=== PATIENT | male | born 1995 | race Caucasian/White ===

== ENCOUNTER 2016-07-23 19:46 | Emergency (ER) | payer OTHER ==
[~2016-07-23] VITALS: Ht 157.5 cm; Wt 61.2 kg
[2016-07-23 19:50] VITALS: BP 122/80
[2016-07-23] MEDS ORDERED: IBUPROFEN 600 MG TABLET. PO ONE (20:15)
[2016-07-23] MEDS ORDERED: ACETAMINOPHEN 325 MG TABLET PO ONE (20:15)
[2016-07-23] MEDS ORDERED: NAPR500T PO (20:25)
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
== END 2016-07-23 20:27 | disposition home or self-care (01) ==
LOC: ER 19:46
DX: S76.011A Strain of muscle, fascia and tendon of right hip, initial encounter (principal); S80.811A Abrasion, right lower leg, initial encounter; V89.2XXA Person injured in unspecified motor-vehicle accident, traffic, initial encounter; Y93.89 Activity, other specified; Y99.8 Other external cause status; Y92.481 Parking lot as the place of occurrence of the external cause
CPT/HCPCS: 99283

== ENCOUNTER 2021-07-12 14:04 | Emergency (ER) | payer OTHER ==
[~2021-07-12] VITALS: Ht 157.5 cm; Wt 60.9 kg
[~2021-07-12 14:04] MED LIST: NAPR-683 PO
[2021-07-12] MEDS ORDERED: diphenhydrAMINE 50 MG/ML VIAL IVP ONE (14:30)
[2021-07-12] MEDS ORDERED: PROCHLORPERAZINE 10 MG/2 ML VIAL. IV ONE (14:30)
[2021-07-12] MEDS ORDERED: KETOROLAC 30 MG/ML VIAL. IVP ONE (14:30)
[2021-07-12] MEDS ORDERED: IV NORMAL SALINE 1,000ML 1,000 ML IV ONE (14:30)
--- NOTE | 2021-07-12 14:39 | PHYS DOC ---
Past History Past Medical History: No Pertinent History Past Surgical History: No Surgical History Alcohol Use: Occasionally Drug Use: None General Adult EDM: Chief Complaint: DIZZY/LIGHT HEADED HPI: HPI: Patient is a 26-year-old male who presents to the emergency department multiple complaints. Patient reports that he was working outside today putting windows in the house newly had approximately 34 ounces of fluid. He reports that when he was outside working he started to feel lightheaded and nauseous. He reports he started experiencing blurred right peripheral vision and frontal headache with tingling in his hands. Patient reports that the blurred vision in his right eye is intermittent. He denies any chest pain, shortness of breath, vomiting, fevers, photophobia. He has no medical history. Review of Systems: Review of Systems: Constitutional: see HPI Eyes: see HPI HENT: see HPI Respiratory: see HPI Cardiovascular: see HPI GI: see HPI Neurologic: see HPI Current Medications: Current Meds: Current Medications Medications (Trade) Dose Ordered Sig/Can Start Time Stop Time Status Last Admin Dose Admin Diphenhydramine HCl (Benadryl) 25 mg 1X ONCE 07/12/21 14:30 07/12/21 14:33 DC Ketorolac Tromethamine (Toradol 30mg Vial) 30 mg 1X ONCE 07/12/21 14:30 07/12/21 14:33 DC Prochlorperazine Edisylate (Compazine) 10 mg 1X ONCE 07/12/21 14:30 07/12/21 14:33 DC Sodium Chloride 1,000 ml @ 1,000 mls/hr 1X ONCE 07/12/21 14:30 07/12/21 15:29 Allergies: Allergies: Allergies Coded Allergies Type Severity Reaction Last Updated Verified No Known Drug Allergies 07/23/16 No Physical Exam: PE: Constitutional: Well developed, well nourished, no acute distress, non-toxic appearance. [] HENT: Normocephalic, atraumatic, bilateral external ears normal, oropharynx moist, no oral exudates, nose normal. [] Eyes: PERRL,no nystagmus, 4mm bilaterally, peripheral vision intact, EOMI, conjunctiva normal, no discharge. [] Neck: Normal range of motion, no tenderness, supple, no stridor. [] Cardiovascular:Heart rate regular rhythm, no murmur [] Lungs & Thorax: Bilateral breath sounds clear to auscultation [] Abdomen: Bowel sounds normal, soft, no tenderness, no masses, no pulsatile masses. [] Skin: Warm, dry, no erythema, no rash. [] Back: No tenderness, normal ROM Extremities: No tenderness, no cyanosis, no clubbing, ROM intact, no edema. [] Neurologic: Alert and oriented X 3, normal motor function, normal sensory function, no focal deficits noted, no limb ataxia, no pronator drift, no slurred speech. [] Psychologic: Affect normal, judgement normal, mood normal. [] Current Patient Data: Labs: Laboratory Tests Test 07/12/21 14:21 07/12/21 14:39 Sodium Level 140 mmol/L Potassium Level 3.6 mmol/L Chloride Level 103 mmol/L Carbon Dioxide Level 27 mmol/L Anion Gap 10 Blood Urea Nitrogen 13 mg/dL Creatinine 0.8 mg/dL Estimated GFR (Cockcroft-Gault) 117.8 BUN/Creatinine Ratio 16 Glucose Level 89 mg/dL Calcium Level 9.2 mg/dL Total Bilirubin 0.7 mg/dL Aspartate Amino Transf (AST/SGOT) 46 U/L Alanine Aminotransferase (ALT/SGPT) 127 U/L Alkaline Phosphatase 76 U/L Total Protein 7.7 g/dL Albumin 4.2 g/dL Albumin/Globulin Ratio 1.2 White Blood Count 10.3 x10^3/uL Red Blood Count 4.97 x10^6/uL Hemoglobin 15.7 g/dL Hematocrit 45.6 % Mean Corpuscular Volume 92 fL Mean Corpuscular Hemoglobin 32 pg Mean Corpuscular Hemoglobin Concent 35 g/dL Red Cell Distribution Width 13.1 % Platelet Count 228 x10^3/uL Neutrophils (%) (Auto) 67 % Lymphocytes (%) (Auto) 22 % Monocytes (%) (Auto) 9 % Eosinophils (%) (Auto) 2 % Basophils (%) (Auto) 1 % Neutrophils # (Auto) 6.9 x10^3uL Lymphocytes # (Auto) 2.3 x10^3/uL Monocytes # (Auto) 0.9 x10^3/uL Eosinophils # (Auto) 0.2 x10^3/uL Basophils # (Auto) 0.1 x10^3/uL Current Medications Medications (Trade) Dose Ordered Sig/Can Route PRN Reason Start Time Stop Time Status Last Admin Dose Admin Sodium Chloride 1,000 ml @ 1,000 mls/hr 1X ONCE IV 07/12/21 14:30 07/12/21 15:29 DC 07/12/21 14:30 Ketorolac Tromethamine (Toradol 30mg Vial) 30 mg 1X ONCE IVP 07/12/21 14:30 07/12/21 14:33 DC 07/12/21 14:30 Diphenhydramine HCl (Benadryl) 25 mg 1X ONCE IVP 07/12/21 14:30 07/12/21 14:33 DC 07/12/21 14:30 Prochlorperazine Edisylate (Compazine) 10 mg 1X ONCE IV 07/12/21 14:30 07/12/21 14:33 DC 07/12/21 14:30 Vital Signs: Vital Signs Date Time Temp Pulse Resp B/P (MAP) Pulse Ox O2 Delivery O2 Flow Rate FiO2 07/12/21 14:17 99.0 89 16 123/60 (81) 100 Room Air EKG: EKG: [] Radiology/Procedures: Radiology/Procedures: \PROCEDURE: CT HEAD WO CONTRAST CT head without contrast PQRS statement: CT scans at this facility use dose reduction including either automated exposure control, iterative reconstructions, and /or weight based radiation dosing via mA and kV modification when appropriate to reduce radiation dose to as low as reasonably achievable. HISTORY: Headache. Dizziness. FINDINGS: Cerebellar tonsillar ectopia extending slightly below the foramen magnum extending outside [id number], this is likely incidental tonsil ectopia, a Chiari I malformation is possible although is less likely as there does not appear to be significant crowding of the tonsils with the brainstem evident, although this could be definitively assessed with MR imaging. Basilar cisterns are patent. No intracranial hemorrhage, mass, hydrocephalus, extra- axial fluid collections or infarction. Orbits, mastoids and bones are unremarkable. IMPRESSION: No acute abnormality. 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 See above. Electronically signed by: Simón Mahan MD (07/12/2021 2:42 PM) [facility] [place]IGNED BY: SIMÓN MAHAN MD DATE: 07/12/21 [id number] CC: [facility] [employer] C[employer] MANAGER RN; PCP,NO ~ Heart Score: C/O Chest Pain: No Risk Factors: Risk Factors: DM, Current or recent (<one month) smoker, HTN, HLP, family history of CAD, obesity. Risk Scores: Score 0 - 3: 2.5% MACE over next 6 weeks - Discharge Home Score 4 - 6: 20.3% MACE over next 6 weeks - Admit for Clinical Observation Score 7 - 10: 72.7% MACE over next 6 weeks - Early Invasive Strategies Course & Med Decision Making: Course & Med Decision Making Pertinent Labs and Imaging studies reviewed. (See chart for details) []Patient presents to the ER for nausea, headache, lightheadedness following working outside in heat. He is reporting intermittent blurred right peripheral vision. Patient's peripheral vision is intact upon assessment. Therefore, a CT scan of his head was performed. Work up also included blood work and UA. Patient treated with IV fluids and his headache was treated with migraine cocktail. Patient's blood work was unremarkable. CT imaging shows a possible Chiari malformation. Patient reports resolution in symptoms following treatment in the emergency department. Patient advised to increase his fluids, take Tylenol and ibuprofen at home for pain and follow-up with Dr. Linares.Avoid contact sports or injury I discussed with patient all findings and diagnostic testing as well as the need to follow-up with PCP for further evaluation and treatment or return to the ER if any new or worsening symptoms. Strict return precautions were also discussed at length. Patient voiced understanding and agreement with the plan. Patient is hemodynamically stable at the time of disposition. Dragon Disclaimer: Dragon Disclaimer: This electronic medical record was generated, in whole or in part, using a voice recognition dictation system. Departure Departure: Impression: Primary Impression: Heat exposure Qualified Codes: T67.9XXA - Effect of heat and light, unspecified, initial encounter Additional Impression: Headache Qualified Codes: R51.9 - Headache, unspecified Disposition: HOME / SELF CARE / HOMELESS Condition: GOOD Referrals: [facility] (PCP) ROXY LINARES MD Patient Instructions: Chiari Malformation, Heat Illness-SportsMed Additional Instructions: You are seen in the emergency department for lightheadedness, nausea and headache. Please increase your fluids and stay well-hydrated at home. Take Tylenol and ibuprofen at home for any headache. You will need to follow-up with your doctor in the medicine neurologist regarding your CT imaging of your head. Please call them tomorrow to set up a follow-up appointment. Please bring your CT report to his office for an ED follow-up. Return to the emergency department if you develop worsening of your headache, poor coordination, slurred speech, intractable nausea or vomiting, high fevers refractory to treatment, syncope, chest pain, shortness of breath or any new or worsening concerns. [facility] [employer] CARE MANAGER RN July 12, 2021 14:39
--- NOTE | 2021-07-12 14:44 | RAD ---
CT head without contrast PQRS statement: CT scans at this facility use dose reduction including either automated exposure cont rol, iterative reconstructions, and /or weight based radiation dosing via mA and kV modification when appropriate to reduce radiation dose to as low as reasonably achievable. HISTORY: Headache. Dizziness. FINDINGS: Cerebellar tonsillar ectopia extending slightly below the foramen magnum extending outside [id number], this is likely incidental tonsil ectopia, a Chiari I malformation is possible although is less likely as there does not appear to be significant crowding of the tonsils with the brainstem evident, although this could be definitively assessed with MR imaging. Basilar cisterns are patent. No intracranial hemorrhage, mass, hydrocephalus, extra-axial fluid collections or infarction. Orbits, mastoids and bones are unremarkable. IMPRESSION: No acute abnormality. 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 See above. Electronically signed by: Dillon Valles MD (07/12/2021 2:42 PM) [facility]
[2021-07-12 14:58] LABS: BASO # 0.1 x10^3/uL (0.0-0.2); BASO % 1 % (0-3); EOS # 0.2 x10^3/uL (0.0-0.7); EOS % 2 % (0-3); HEMATOCRIT 45.6 % (39.0-53.0); HEMOGLOBIN 15.7 g/dL (13.0-17.5); LYMPH # 2.3 x10^3/uL (1.0-4.8); LYMPH % 22 % (24-48); MEAN CORPUSCULAR HEMOGLOBIN 32 pg (25-35); MEAN CORPUSCULAR HGB CONC 35 g/dL (31-37); MEAN CORPUSCULAR VOLUME 92 fL (79-100); MONO # 0.9 x10^3/uL (0.0-1.1); MONO % 9 % (0-9); NEUT # 6.9 x10^3uL (1.8-7.7); NEUT % 67 % (31-73); PLATELET COUNT 228 x10^3/uL (140-400); RED BLOOD COUNT 4.97 x10^6/uL (4.30-5.70); RED CELL DISTRIBUTION WIDTH 13.1 % (11.5-14.5); WHITE BLOOD COUNT 10.3 x10^3/uL (4.0-11.0)
[2021-07-12 15:09] LABS: CALCIUM 9.2 mg/dL (8.5-10.1); CREATININE 0.8 mg/dL (0.7-1.3); GFR 117.8; POTASSIUM 3.6 mmol/L (3.5-5.1)
[2021-07-12 15:15] LABS: ALBUMIN 4.2 g/dL (3.4-5.0); ALBUMIN/GLOBULIN RATIO 1.2 (1.0-1.7); TOTAL BILIRUBIN 0.7 mg/dL (0.2-1.0); TOTAL PROTEIN 7.7 g/dL (6.4-8.2)
[2021-07-12 16:22] VITALS: BP 120/68
== END 2021-07-12 16:23 | disposition home or self-care (01) ==
LOC: ER 14:04
DX: T67.5XXA Heat exhaustion, unspecified, initial encounter (principal); R51.9 Headache, unspecified; X58.XXXA Exposure to other specified factors, initial encounter; Y93.89 Activity, other specified; Y92.89 Other specified places as the place of occurrence of the external cause; Y99.8 Other external cause status
CPT/HCPCS: 36415; 70450; 80053; 85025; 96361; 96374; 96375; 99284; J0780; J1200; J1885; J7030